=== PATIENT | female | born 1970 | race Caucasian/White ===

== ENCOUNTER 2018-04-01 05:37 | Observation (INO) | payer MEDICAID ==
[2018-04-01] MEDS ORDERED: ONDANSETRON HCL IV 4 MG/2 ML VIAL IVP ONE (05:44)
[2018-04-01] MEDS ORDERED: 0.9 % SODIUM CHLORIDE 1000ML 1,000 ML IV ONE ×2 (05:44→06:04)
--- NOTE | 2018-04-01 05:53 | Emergency Department Record ---
History of Present Illness - General Chief complaint: Vomiting Stated complaint: VOMITING/AP Time Seen by Provider: 04/01/18 05:38 Source: Patient, Family Mode of Arrival: Ambulatory Limitations: No limitations - History of Present Illness Initial comments: 47 yo female presents with nausea, vomiting, and diarrhea since Thursday. She has been having fevers and chills as well. Her Tmax was 103. The vomit is watery as is the diarrhea. She is having 5-10 episodes of each daily. No blood in either. She denies any abdominal pain. She states she has not really had any meals in the since Thursday. Her mother has dried broths and ice chips. She has had her gall bladder and appendix removed in the past. She quit smoking about 6 months ago. She has a history of asthma. She has had a mild cough just the last 24 hours. She does not have a PCP. She moved from [place] about 2-3 months ago. She is not on any prescriptions. No allergies. No PCP MD complaint: Diarrhea, Nausea, Vomiting, Other (cough) -: Days(s) (3) Description of Vomiting: Watery Description of Diarrhea: Water Location: Other (No abdominal pain) Radiation: None Severity: Moderate Quality: Other Consistency: Constant Improves with: Vomiting Worsens with: Eating Context: Other Associated Symptoms: Cough, Fever/chills, Loss of appetite, Nausea/vomiting, Other (Diarrhea) - Related Data Home Medications Medication Instructions Recorded Confirmed Last Taken Albuterol Sulfate [Albuterol 1 puff IN ASDIR PRN 04/01/18 04/01/18 04/01/18 Sulfate Hfa] Allergies Allergy/AdvReac Type Severity Reaction Status Date / Time No Known Drug Allergies Allergy Verified 04/01/18 05:52 Review of Systems Constitutional: Reports: Chills, Fever, Malaise, Weakness Eyes: Denies: Eye discharge, Eye pain, Vision change ENT: Denies: Congestion, Throat pain Respiratory: Reports: Cough Cardiovascular: Denies: Chest pain, Palpitations, Syncope Endocrine: Reports: Fatigue. Denies: Polydipsia, Polyuria Gastrointestinal: Reports: As per HPI, Diarrhea, Nausea, Vomiting. Denies: Abdominal pain, Constipation, Hematemesis, Hematochezia, Melena Genitourinary: Denies: Dysuria, Urgency Musculoskeletal: Denies: Arthralgia, Back pain, Neck pain Skin: Denies: Bruising, Change in color, Rash Neurological: Denies: Abnormal gait, Headache, Vertigo, Weakness Psychiatric: Denies: Anxiety Hematological/Lymphatic: Denies: Easy bleeding, Easy bruising, Swollen glands Physical Exam - General General Appearance: Alert, Oriented x3, Cooperative, No acute distress Limitations: No limitations - Head Head exam: Atraumatic, Normal inspection - Eye Eye exam: Normal appearance, PERRL. negative: Conjunctival injection, Scleral icterus - ENT ENT exam: Mucous membranes dry. negative: Mucous membranes moist, Normal orophraynx Ear exam: Normal external inspection Nasal Exam: Discharge Mouth exam: Normal external inspection Teeth exam: Normal inspection Throat exam: Normal inspection - Neck Neck exam: Normal inspection - Respiratory Respiratory exam: Decreased breath sounds, Prolonged expiratory, Rhonchi (few scattered), Wheezes. negative: Normal lung sounds bilaterally, Accessory muscle use, Respiratory distress - Cardiovascular Cardiovascular Exam: Normal rhythm, Normal heart sounds, Tachycardia Peripheral Pulses: 2+: Radial (R), Radial (L) - GI/Abdominal GI/Abdominal exam: Soft. negative: Guarding, Rebound, Rigid, Tenderness - Rectal Rectal exam: Deferred - exam: Deferred - Extremities Extremities exam: Normal inspection. negative: Pedal edema - Back Back exam: Denies: CVA tenderness (R), CVA tenderness (L) - Neurological Neurological exam: Alert, Oriented X3 - Psychiatric Psychiatric exam: Normal affect, Normal mood - Skin Skin exam: Dry, Intact, Normal color, Warm Course - Reevaluation(s) Reevaluation #1: Vitals reviewed Fever, increased heart rate noted. 04/01/18 05:55 No prior records on the EMR 04/01/18 06:00 04/01/18 06:05 The CBC was reviewed. No acute changes. 04/01/18 06:19 The BP was improved to 120/67 of repeat Duoneb ordered for her wheezing. 04/01/18 06:20 The CMP was reviewed HCO3 was 21 with AG of 17 04/01/18 06:30 The patient was rechecked after the Duoneb Her air exchanged improved and she subjectively felt better She reports she has been out of her Albuterol for some time 04/01/18 06:33 The patient is positive for influenza 04/01/18 06:44 The preliminary CXR was read as no acute infiltrate 04/01/18 06:53 The case was discussed with Brandee Anderson NP for admission to the Family Medicine Service. Medical Decision Making - Lab Data Result diagrams: 04/01/18 05:52 04/01/18 05:52 Disposition Disposition: Admit Clinical Impression: Vomiting and diarrhea, Influenza A Disposition: Still a Patient at [facility] Decision to Admit: Admit from ER Decision to Admit Date: 04/01/18 Decision to Admit Time: 06:40 Condition: (2) Stable Time of Disposition: 06:44 Quality - Quality Measures Quality Measures: N/A - Blood Pressure Screening Does Patient Have Any of the Following: No Blood Pressure Classification: Normal BP Reading Systolic Measurement: 93 Diastolic Measurement: 74 Screening for High Blood Pressure: < Normal BP, F/U Not Required > [G8783]
[2018-04-01] MEDS ORDERED: ACETAMINOPHEN 1,000 MG/100 ML BTL IVPB ONE (05:54)
[2018-04-01 06:00] LABS: BASO % 0.3 % (0-6); EOS % 0.1 % (0-6); GRAN % 75.5 % (47-80); HEMATOCRIT 49.4 % (35.0-47.0); LYMPH % 14.2 % (16-45); MEAN CELL VOLUME 91.8 fl (81-97); MEAN CORPUSCULAR HEMOGLOBIN 29.7 pg (27-33); MEAN CORPUSCULAR HGB CONC 32.4 g/dl (32-36); MEAN PLATELET VOLUME 9.8 fl (7.4-10.4); MONO % 9.9 % (0-9); PLATELET COUNT 245 K/uL (130-400); RED BLOOD COUNT 5.38 M/uL (3.80-5.40); RED CELL DISTRIBUTION WIDTH 15.6 % (11.5-14.5); WHITE BLOOD COUNT W/O DIFF 11.9 K/uL (4.2-12.2)
[2018-04-01 06:12] LABS: BLOOD UREA NITROGEN 10 mg/dL (6-20); CREATININE 0.6 mg/dL (0.5-0.9); EST GLOMERULAR FILTRATION RATE > 60 mL/min
[2018-04-01 06:13] LABS: TOTAL PROTEIN 8.1 g/dL (6.6-8.7)
[2018-04-01 06:15] LABS: GLUCOSE,RANDOM 135 mg/dL (74-109)
[2018-04-01 06:17] LABS: ALT/SGPT 23 U/L (<33); AST/SGOT 17 U/L (10.0-35.0)
[2018-04-01 06:18] LABS: ALBUMIN 4.1 g/dL (4.0-5.0); ALKALINE PHOSPHATASE 99 U/L (45-87)
[2018-04-01] MEDS ORDERED: IPRATROPIUM/ALBUTEROL (0.5MG/3MG) NEB INH ONE (06:18)
[2018-04-01 06:32] LABS: INFLUENZA A POSITIVE (NEGATIVE); INFLUENZA B NEGATIVE (NEGATIVE)
[2018-04-01] MEDS ORDERED: OSTELTAMIVIR 75 MG CAP PO ONE (06:32)
[2018-04-01] MEDS ORDERED: METHYLPREDNISOLONE PF 125MG/VIAL IVP ONE (06:33)
[2018-04-01] MEDS ORDERED: ACETAMINOPHEN 325 MG TAB PO PRN (08:18)
[2018-04-01] MEDS ORDERED: ALBUTEROL SULFATE (0.083%) 2.5 MG/3 ML NEB INH PRN (08:18)
[2018-04-01 09:58] LABS: URINE APPEARANCE CLEAR; URINE BILIRUBIN SMALL (NEGATIVE); URINE BLOOD MODERATE (NEGATIVE); URINE COLOR YELLOW; URINE GLUCOSE (UA) NEGATIVE (NEGATIVE); URINE KETONE NEGATIVE (NEGATIVE); URINE LEUKOCYTE ESTERASE NEGATIVE (NEGATIVE); URINE NITRITE NEGATIVE (NEGATIVE)
[2018-04-01] MEDS: IPRATROPIUM/ALBUTEROL (0.5MG/3MG) NEB INH SCH ×4 (10:04→21:51)
[2018-04-01 10:06] LABS: URINE MUCUS LIGHT; URINE WBC NONE SEEN (0-2/hpf)
[2018-04-01] MEDS: ENOXAPARIN 40 MG/0.4 ML SYR SC SCH (10:17)
[2018-04-01] MEDS: OSTELTAMIVIR 75 MG CAP PO SCH ×2 (10:17→22:27)
[2018-04-01] MEDS: METHYLPREDNISOLONE PF 125MG/VIAL IVP SCH (10:17)
--- NOTE | 2018-04-01 11:04 | History & Physical ---
History of Present Illness - Date of Service Date of Service for History & Physical: 04/02/18 - History of Present Illness Admitting Diagnosis: Intractable Vomiting, Diarrhea, dehydration, Flu A History of Present Illness: 47yo female c/o N/V/D x 3-4 days. denies sick contacts. No PCP, pt recently moved to [place] from [place] 2-3 months ago. PMH asthma and h/o FLU with admission a few years ago. Gallbladder and appendix removed per pt history. Pt did not get her flu vaccination this season. 04/01/18 Pt ambulated to [facility] ER for N/V/D 3-4 days and new onset cough and fever. Pt denies abd pain but reports watery diarrhea and vomiting with PO intake. Pt was found to be febrile, tachycardia, coarse lung sounds and labored breathing. 101F, Hr 134, 93/74, RR 24, 92% RA WBC 11.9, hgb 16, Hct 49.4, Plt 245 Na 137, K 4, Anion Gap 17, BUN 10, Cr 0.6, GFR >60, Glcose 135, LFT wnl stool cultures and UA ordered but not completed in ED CXR patchy air space disease, atelectasis vs less likely PNA Flu A positive Pt given Duo neb, lung sounds documented improvement. Steroids and Lamiflu given. 04/01/18 Pt resting in bed, does not appear to be in distress. A&Ox3, moving all extremities and does not appear to have labored breathing. Lung sounds diminished but no rhonchi noted. Pt able to talk in full sentences without difficulty. Pt tolerating CLD with no known issues. POC advance diet, continue breathing treatments and repeat labs in the AM. PCP none Travel Screening - Travel/Exposure Within Last 30 Days Have you traveled within the last 30 days?: No - Travel/Exposure Within Last Year Have you traveled outside the [place] in the last year?: No Location Detail:: [place] - Additonal Travel Details Have you been exposed to anyone with a communicable illness?: No - Travel Symptoms Symptom Screening: Fatigue, Diarrhea, Vomiting, Lack of Appetite Review of Systems Constitutional: Reports: Chills, Fever, Malaise, Weakness Eyes: Denies: Eye discharge, Eye pain, Vision change ENT: Denies: Congestion, Throat pain Respiratory: Reports: Cough Cardiovascular: Denies: Chest pain, Palpitations, Syncope Endocrine: Reports: Fatigue. Denies: Polydipsia, Polyuria Gastrointestinal: Reports: As per HPI, Diarrhea, Nausea, Vomiting. Denies: Abdominal pain, Constipation, Hematemesis, Hematochezia, Melena Genitourinary: Denies: Dysuria, Urgency Musculoskeletal: Denies: Arthralgia, Back pain, Neck pain Skin: Denies: Bruising, Change in color, Rash Neurological: Denies: Abnormal gait, Headache, Vertigo, Weakness Psychiatric: Denies: Anxiety Hematological/Lymphatic: Denies: Easy bleeding, Easy bruising, Swollen glands Past Medical History - SOCIAL HISTORY Smoking Status: Former smoker Alcohol Use: None Drug Use: None - RESPIRATORY Hx Respiratory Disorders: Yes Hx Asthma: Yes - CARDIOVASCULAR Hx Cardio Disorders: No - NEURO Hx Neuro Disorders: No - GI Hx GI Disorders: No - Hx Genitourinary Disorders: No - ENDOCRINE Hx Endocrine Disorders: No - MUSCULOSKELETAL Hx Musculoskeletal Disorders: No - PSYCH Hx Psych Problems: No - HEMATOLOGY/ONCOLOGY Hx Hematology/Oncology Disorders: No Family Medical History Any Significant Family History?: No H&P Meds/Allergies - Allergies Allergies: Allergies Allergy/AdvReac Type Severity Reaction Status Date / Time No Known Drug Allergies Allergy Verified 04/01/18 05:52 - Home Medications Home Medications Medication Instructions Recorded Confirmed Last Taken Albuterol Sulfate [Albuterol 1 puff IN ASDIR PRN 04/01/18 04/01/18 04/01/18 Sulfate Hfa] - Active Medications Active Medications: Current Medications Acetaminophen (Tylenol 325mg) 650 mg PO Q4H PRN PRN Reason: PAIN - MILD(1-4)/FEVER Albuterol Sulfate (Albuterol Sulfate) 2.5 mg INH RESP.Q2H PRN PRN Reason: DIFFICULTY IN BREATHING Albuterol/Ipratropium (Duoneb) 3 ml INH RESP.Q4H.[place] [facility], [facility]1983 Last Admin: 04/01/18 10:04 Dose: 3 ml Enoxaparin Sodium (Lovenox) 40 mg SC DAILY [facility] Last Admin: 04/01/18 10:17 Dose: 40 mg Sodium Chloride () 1,000 mls @ 100 mls/hr IV .Q10H PRN PRN Reason: LARGE VOLUME IV Methylprednisolone Sodium Succinate (Solu-Medrol) 60 mg IVP DAILY [facility] Last Admin: 04/01/18 10:17 Dose: 60 mg Ondansetron HCl (Zofran) 4 mg IVP Q4H PRN PRN Reason: NAUSEA Oseltamivir Phosphate (Tamiflu) 75 mg PO BID VIKTOR Last Admin: 04/01/18 10:17 Dose: 75 mg Physical Exam - Vital Signs Vital Signs: Vital Signs - Last 24 Hrs Temp Pulse Pulse Resp BP BP Pulse Ox 04/01/18 10:32 85 18 99 04/01/18 07:22 116 H 93/74 93 L 04/01/18 07:17 114 H 25 H 92/63 93 L 04/01/18 06:32 100 F H 118 H 24 110/63 93 L 04/01/18 06:23 116 H 20 96 04/01/18 06:15 125 H 120/67 90 L 04/01/18 05:40 101.0 F H 134 H 24 93/74 92 L - General General Appearance: Alert, Oriented x3, Cooperative, No acute distress Limitations: No limitations - Head Head exam: Atraumatic, Normal inspection - Eye Eye exam: Normal appearance, PERRL. negative: Conjunctival injection, Scleral icterus - ENT ENT exam: Mucous membranes dry. negative: Mucous membranes moist, Normal orophraynx Ear exam: Normal external inspection Nasal Exam: Discharge Mouth exam: Normal external inspection Teeth exam: Normal inspection Throat exam: Normal inspection - Neck Neck exam: Normal inspection - Respiratory Respiratory exam: Decreased breath sounds, Wheezes. negative: Normal lung sounds bilaterally, Accessory muscle use, Respiratory distress - Cardiovascular Cardiovascular Exam: Regular rate, Normal rhythm, Normal heart sounds Peripheral Pulses: 2+: Radial (R), Radial (L), Dorsalis Pedis (R), Dorsalis Pedis (L) - GI/Abdominal GI/Abdominal exam: Soft. negative: Guarding, Rebound, Rigid, Tenderness - Rectal Rectal exam: Deferred - exam: Deferred - Extremities Extremities exam: Normal inspection. negative: Pedal edema - Back Back exam: Denies: CVA tenderness (R), CVA tenderness (L) - Neurological Neurological exam: Alert, Oriented X3 - Psychiatric Psychiatric exam: Normal affect, Normal mood - Skin Skin exam: Dry, Intact, Normal color, Warm Results - Labs Result Diagrams: 04/02/18 03:36 04/02/18 06:36 Labs Last 24 Hours: Laboratory Results - last 24 hr 04/01/18 04/01/18 04/01/18 05:52 05:52 06:32 WBC 11.9 RBC 5.38 Hgb 16.0 Hct 49.4 H MCV 91.8 MCH 29.7 MCHC 32.4 RDW 15.6 H Plt Count 245 MPV 9.8 Gran % 75.5 Lymphocytes % 14.2 L Monocytes % 9.9 H Eosinophils % 0.1 Basophils % 0.3 Sodium 137 Potassium 4.0 Chloride 99 Carbon Dioxide 21.0 L Anion Gap 17.0 H BUN 10 Creatinine 0.6 Estimated GFR > 60 Random Glucose 135 H Calcium 9.1 Total Bilirubin 0.50 AST 17 ALT 23 Alkaline Phosphatase 99 H Total Protein 8.1 Albumin 4.1 Globulin 4.0 Albumin/Globulin Ratio 1.0 L Urine Color Urine Appearance Urine pH Ur Specific [place] Urine Protein Urine Glucose (UA) Urine Ketones Urine Blood Urine Nitrite Urine Bilirubin Urine Urobilinogen Ur Leukocyte Esterase Urine RBC Urine WBC Ur Epithelial Cells Urine Mucus Influenza Type A Ag Positive H Influenza Type B Ag Negative 04/01/18 09:45 WBC RBC Hgb Hct MCV MCH MCHC RDW Plt Count MPV Gran % Lymphocytes % Monocytes % Eosinophils % Basophils % Sodium Potassium Chloride Carbon Dioxide Anion Gap BUN Creatinine Estimated GFR Random Glucose Calcium Total Bilirubin AST ALT Alkaline Phosphatase Total Protein Albumin Globulin Albumin/Globulin Ratio Urine Color Yellow Urine Appearance Clear Urine pH 5.5 Ur Specific [place] >= 1.030 Urine Protein 30 mg/dl H Urine Glucose (UA) Negative Urine Ketones Negative Urine Blood Moderate Urine Nitrite Negative Urine Bilirubin Small H Urine Urobilinogen 1.0 Ur Leukocyte Esterase Negative Urine RBC 3 - 6 Urine WBC None seen Ur Epithelial Cells 3 - 6 Urine Mucus Light Influenza Type A Ag Influenza Type B Ag - Imaging and Cardiology Chest x-ray Status: Report reviewed VTE H&P Assessment - Risk for VTE Risk for VTE: Yes Risk Level: Moderate Risk Assessment Date: 04/01/18 Risk Assessment Time: 10:00 VTE Orders Placed or Will Be Placed: Yes Plan - Detailed Diagnosis and Plan (1) Influenza A Current Visit: Yes Status: Acute Base Code: J10.1 - FLU DUE TO OTH IDENT INFLUENZA VIRUS W OTH RESP MANIFEST Comment: 04/01/18 -positive flu A -h/o flu with hospitalization in the past -no flu vaccination -h/o asthma and freq URIs -no knonw sick contacts (2) Vomiting and diarrhea Current Visit: Yes Status: Acute Base Code: R11.10 - VOMITING, UNSPECIFIED; R19.7 - DIARRHEA, UNSPECIFIED Comment: 04/01/18 -Pt has not had diarrhea since presenting to ER - no vomiting this admission -start CLD and advance as tolerated (3) DVT prophylaxis Current Visit: Yes Status: Acute Base Code: [id number] - Comment: 04/01/18 -lovenox 40mg SQ (4) Full code status Current Visit: Yes Status: Acute Base Code: Z78.9 - OTHER SPECIFIED HEALTH STATUS Comment: 04/01/18 -full code
[2018-04-01] MEDS: BENZONATATE 100 MG CAPSULE PO PRN ×2 (16:16→22:29)
[2018-04-01] MEDS: 0.9 % SODIUM CHLORIDE 1000ML 1,000 ML IV PRN (16:17)
[2018-04-01] MEDS ORDERED: PHENOL SORE THROAT SPRAY 177 ML BTL MM PRN (19:34)
[2018-04-02] MEDS: 0.9 % SODIUM CHLORIDE 1000ML 1,000 ML IV PRN (02:31)
[2018-04-02] MEDS ORDERED: GUAIFENESIN/D-METH. 10 ML UDC PO ONE (02:38)
[2018-04-02 06:50] LABS: HEMATOCRIT 42.8 % (35.0-47.0); HEMOGLOBIN 13.7 gm/dl (11.6-16.0); MEAN CELL VOLUME 94.5 fl (81-97); MEAN CORPUSCULAR HEMOGLOBIN 30.2 pg (27-33); MEAN PLATELET VOLUME 9.7 fl (7.4-10.4); PLATELET COUNT 222 K/uL (130-400); RED BLOOD COUNT 4.53 M/uL (3.80-5.40); RED CELL DISTRIBUTION WIDTH 15.7 % (11.5-14.5); WHITE BLOOD COUNT W/O DIFF 14.1 K/uL (4.2-12.2)
[2018-04-02 07:01] LABS: BLOOD UREA NITROGEN 12 mg/dL (6-20); CREATININE 0.4 mg/dL (0.5-0.9); EST GLOMERULAR FILTRATION RATE > 60 mL/min; GLUCOSE,RANDOM 123 mg/dL (74-109)
--- NOTE | 2018-04-02 07:18 | RADIOLOGY REPORT ---
EXAM: PORTABLE CHEST HISTORY: COUGH AND WHEEZING. FEVER. TECHNIQUE: A single mobile upright view of the chest was obtained. Comparison: None. FINDINGS: The patient is lordotically positioned. The heart is not enlarged and no pulmonary venous hypertension is seen. There is possible minimal patchy air space disease in the right lung base consistent with atelectasis or less likely infiltrate. No gross lung consolidation, costophrenic angle blunting or pneumothorax. IMPRESSION: POSSIBLE MINIMAL PATCHY AIR SPACE DISEASE IN THE RIGHT LUNG BASE CONSISTENT WITH ATELECTASIS OR LESS LIKELY INFILTRATE. JOB NUMBER: [id number] [facility]
[2018-04-02 07:21] LABS: ANISOCYTOSIS 1+; PLATELET ESTIMATE NORMAL (NORMAL); TOXIC GRANULATION 1+
[2018-04-02] MEDS: ONDANSETRON HCL IV 4 MG/2 ML VIAL IVP PRN ×2 (07:50→11:55)
[2018-04-02] MEDS: IPRATROPIUM/ALBUTEROL (0.5MG/3MG) NEB INH SCH ×3 (09:57→14:12)
[2018-04-02] MEDS ORDERED: ALBUTEROL HFA 8 GM INHALER INH PRN (10:20)
--- NOTE | 2018-04-02 11:00 | Discharge Summary ---
Providers Discharge Summary Date: 04/02/18 Date of admission: 04/01/18 07:31 Expected Date of Discharge: 04/02/18 Attending physician: PAULINO JADE Primary care physician: None but pt to [facility] care with [facility] in 1-2 weeks Physical Exam - Vital Signs Vital Signs: Vital Signs - Last 24 Hrs Temp Pulse Pulse Resp BP Pulse Ox 04/02/18 09:59 87 18 97 04/02/18 09:58 87 18 99 04/02/18 08:00 97.6 F 91 H 20 127/80 96 04/02/18 00:13 99 H 18 96 04/01/18 21:54 96 H 22 93 L 04/01/18 20:00 98.5 F 102 H 22 123/76 94 L 04/01/18 18:48 81 18 97 04/01/18 16:18 98.5 F 81 16 125/72 92 L 04/01/18 14:18 84 20 96 - General General Appearance: Alert, Oriented x3, Cooperative, No acute distress Limitations: No limitations - Head Head exam: Atraumatic, Normal inspection - Eye Eye exam: Normal appearance, PERRL. negative: Conjunctival injection, Scleral icterus - ENT ENT exam: Mucous membranes dry. negative: Mucous membranes moist, Normal orophraynx Ear exam: Normal external inspection Nasal Exam: Discharge Mouth exam: Normal external inspection Teeth exam: Normal inspection Throat exam: Normal inspection - Neck Neck exam: Normal inspection - Respiratory Respiratory exam: Decreased breath sounds, Wheezes. negative: Normal lung sounds bilaterally, Accessory muscle use, Respiratory distress - Cardiovascular Cardiovascular Exam: Regular rate, Normal rhythm, Normal heart sounds Peripheral Pulses: 2+: Radial (R), Radial (L), Dorsalis Pedis (R), Dorsalis Pedis (L) - GI/Abdominal GI/Abdominal exam: Soft. negative: Guarding, Rebound, Rigid, Tenderness - Rectal Rectal exam: Deferred - exam: Deferred - Extremities Extremities exam: Normal inspection. negative: Pedal edema - Back Back exam: Denies: CVA tenderness (R), CVA tenderness (L) - Neurological Neurological exam: Alert, Oriented X3 - Psychiatric Psychiatric exam: Normal affect, Normal mood - Skin Skin exam: Dry, Intact, Normal color, Warm Hospitalization - Hospitalization Admission Diagnosis: Intractable Vomiting, Diarrhea, dehydration, Flu A - Problem List/Discharge Diagnosis (1) Influenza A Current Visit: Yes Status: Acute Base Code: J10.1 - FLU DUE TO OTH IDENT INFLUENZA VIRUS W OTH RESP MANIFEST Comment: 04/01/18 -positive flu A -h/o flu with hospitalization in the past -no flu vaccination -h/o asthma and freq URIs -no knonw sick contacts 04/02/18 -pt in no distress, a&ox4, cough noted but not excessive -tolerant of Robitussin and tesslon perles -d/c home today with encouragement for fluids and rest, continue tamilfu outpt (2) Vomiting and diarrhea Current Visit: Yes Status: Acute Base Code: R11.10 - VOMITING, UNSPECIFIED; R19.7 - DIARRHEA, UNSPECIFIED Comment: 04/01/18 -Pt has not had diarrhea since presenting to ER - no vomiting this admission -start CLD and advance as tolerated 04/02/18 -pt has not had any stools or emesis this admission -tolerating soft diet, had one episode of dry heaving after shower but able to tolerate 50% breakfast after that, will d/c with zofran ODT (3) DVT prophylaxis Current Visit: Yes Status: Acute Base Code: [id number] - Comment: 04/01/18 -lovenox 40mg SQ (4) Full code status Current Visit: Yes Status: Acute Base Code: Z78.9 - OTHER SPECIFIED HEALTH STATUS Comment: 04/01/18 -full code - Hospitalization Course Hospital Course: 47yo female c/o N/V/D x 3-4 days. denies sick contacts. No PCP, pt recently moved to [place] from [place] 2-3 months ago. PMH asthma and h/o FLU with admission a few years ago. Gallbladder and appendix removed per pt history. Pt did not get her flu vaccination this season. 04/01/18 Pt ambulated to [facility] ER for N/V/D 3-4 days and new onset cough and fever. Pt denies abd pain but reports watery diarrhea and vomiting with PO intake. Pt was found to be febrile, tachycardia, coarse lung sounds and labored breathing. 101F, Hr 134, 93/74, RR 24, 92% RA WBC 11.9, hgb 16, Hct 49.4, Plt 245 Na 137, K 4, Anion Gap 17, BUN 10, Cr 0.6, GFR >60, Glcose 135, LFT wnl stool cultures and UA ordered but not completed in ED CXR patchy air space disease, atelectasis vs less likely PNA Flu A positive Pt given Duo neb, lung sounds documented improvement. Steroids and Lamiflu given. 04/01/18 Pt resting in bed, does not appear to be in distress. A&Ox3, moving all extremities and does not appear to have labored breathing. Lung sounds diminished but no rhonchi noted. Pt able to talk in full sentences without difficulty. Pt tolerating CLD with no known issues. POC advance diet, continue breathing treatments and repeat labs in the AM. PCP none Procedures: Imaging and X-Rays 04/01/18 06:30 CHEST 1 VIEW [RAD] Stat Cardiology Procedures 04/01/18 05:54 Spray Drier Operator Helper NOW 04/01/18 08:18 Spray Drier Operator Helper .Continuous Abnormal Labs: Abnormal Lab Results 04/01/18 04/01/18 04/01/18 Range/Units 05:52 05:52 06:32 WBC (4.2-12.2) K/uL Hct 49.4 H (35.0-47.0) % RDW 15.6 H (11.5-14.5) % Band Neutrophils % (0-5) % Lymphocytes % 14.2 L (16-45) % Monocytes % 9.9 H (0-9) % Lymphocytes (16-45) % Chloride (98-107) mmol/L Carbon Dioxide 21.0 L (22-29) mmol/L Anion Gap 17.0 H (7-16) Creatinine (0.5-0.9) mg/dL Random Glucose 135 H (74-109) mg/dL Alkaline Phosphatase 99 H (45-87) U/L Albumin/Globulin Ratio 1.0 L (1.1-1.8) Urine Protein (NEGATIVE) Urine Bilirubin (NEGATIVE) Influenza Type A Ag Positive H (NEGATIVE) 04/01/18 04/02/18 04/02/18 Range/Units 09:45 03:36 06:36 WBC 14.1 H (4.2-12.2) K/uL Hct (35.0-47.0) % RDW 15.7 H (11.5-14.5) % Band Neutrophils % 6.0 H (0-5) % Lymphocytes % (16-45) % Monocytes % (0-9) % Lymphocytes 8.0 L (16-45) % Chloride 108 H (98-107) mmol/L Carbon Dioxide (22-29) mmol/L Anion Gap (7-16) Creatinine 0.4 L (0.5-0.9) mg/dL Random Glucose 123 H (74-109) mg/dL Alkaline Phosphatase (45-87) U/L Albumin/Globulin Ratio (1.1-1.8) Urine Protein 30 mg/dl H (NEGATIVE) Urine Bilirubin Small H (NEGATIVE) Influenza Type A Ag (NEGATIVE) Condition at Discharge: (2) Stable Discharge Medications - Discharge Medications Prescriptions: Benzonatate [Tessalon Perles] 100 mg PO TID PRN 10 Days #30 capsule PRN Reason: Cough Ipratropium/Albuterol [Duoneb] 3 ml INH RESP.Q4H.[place] PRN #2 box PRN Reason: wheezing Oseltamivir Phosphate [Tamiflu] 75 mg PO BID 4 Days #8 capsule Home Medications: Ambulatory Orders Albuterol Sulfate [Albuterol Sulfate Hfa] 1 puff IN ASDIR PRN 04/01/18 [Last Taken 04/01/18] Acetaminophen [Tylenol 325Mg] 650 mg PO Q4H PRN tablet 04/02/18 [Last Taken Unknown] Albuterol Sulfate [Ventolin Hfa] 2 puff INH RESP.Q4H PRN inhaler 04/02/18 [ Last Taken Unknown] Benzonatate [Tessalon Perles] 100 mg PO TID PRN 10 Days #30 capsule 04/02/18 [ Last Taken Unknown] Ipratropium/Albuterol [Duoneb] 3 ml INH RESP.Q4H.[place] PRN #2 box 04/02/18 [Last Taken Unknown] Ondansetron [Zofran Odt] 4 mg PO Q8H PRN #15 tab.rapdis 04/02/18 [Last Taken Unknown] Oseltamivir Phosphate [Tamiflu] 75 mg PO BID 4 Days #8 capsule 04/02/18 [Last Taken Unknown] Prednisone [Prednisone 20Mg] 20 mg PO DAILY 4 Days #4 tab 04/02/18 [Last Taken Unknown] Discharge Plan - Discharge Instructions Activity at Discharge: Increase Activity as Tolerated Diet at Discharge: Advance to Usual Diet Additional Instructions: Appointment to establish primary care with Brandee Anderson at [facility] on 04/08 at 4:40PM. Please bring new patient paperwork, insurance card and ID to first appointment. [address] ([address] Continue Tamiflu and steroids for 4 more days. Use the duo neb treatments every 4 hours as needed for wheezing. You have an albuterol hand held inhaler of emergency use also. Continue to take plenty of fluids, advance diet as tolerated. and lots of rest is needed. Zofran 4mg ODT has also been sent to the pharmacy, you can take this for nausea every 8 hours as needed. You can take tylenol or motrin for body aches and discomfort. Go to ER for sudden onset of shortness of breath or if your wheezing is not controlled with the duo neb treatments. AVOID CHILDREN AND THE ELDERY for the next week, you have tested positive for the flu, this is contagious. This can be very dangerous to the very young, those with chronic illness and the aged. Quality Measures - Quality Measures Quality Measures: Documentation of Current Medications in Medical Record, Screening for High Blood Pressure and F/U Documented - Current Medications Quality Measure: Measure #130: Documentation of Current Medications Documentation of Current Medications: <Current Medications Documented/Reviewed> [G8427] - Blood Pressure Screening Quality Measure: Screening for High Blood Pressure and Follow-Up Documented Does Patient Have Any of the Following: No Blood Pressure Classification: Normal BP Reading Systolic Measurement: 93 Diastolic Measurement: 74 Screening for High Blood Pressure: < Normal BP, F/U Not Required > [G8783] - Elder Abuse Suspicion Index EASI Reference Information: Raghavendra QIU, Kassandra C, Wei D, Terrell Velazquez.Development and validation of a tool to assist physicians identification of elder abuse: The Elder Abuse Suspicion Index (EASI ). Journal of Elder Abuse and Neglect, 2008; 20 (3): 276-300.
[2018-04-02] MEDS: METHYLPREDNISOLONE PF 125MG/VIAL IVP SCH (11:04)
[2018-04-02] MEDS: ENOXAPARIN 40 MG/0.4 ML SYR SC SCH (11:04)
[2018-04-02] MEDS: OSTELTAMIVIR 75 MG CAP PO SCH (11:05)
== END 2018-04-02 15:05 | disposition home or self-care (01) ==
LOC: ER 05:37 → INTOOBSV 07:31 → MEDSURG 07:31
PROVIDERS: ADMIT Internal Medicine; ATTEND Internal Medicine
DX: J10.1 Influenza due to other identified influenza virus with other respiratory manifestations (principal); R19.7 Diarrhea, unspecified; R50.9 Fever, unspecified; E86.0 Dehydration; J45.901 Unspecified asthma with (acute) exacerbation; Z87.891 Personal history of nicotine dependence; Z90.49 Acquired absence of other specified parts of digestive tract
CPT/HCPCS: 99285 ×2; 96374; 96375; 96361; 85025; 80048; 80053; 81001; 87400; 85027; 71045; 94640 ×4; 94664; 94761; 94760; 90686; G0378 ×2; J2405 ×2; J3490; 99220; J1650; J2930; J7030; J7613